=== PATIENT | female | born 2000 | race African-American/Black ===

== ENCOUNTER 2019-05-25 18:13 | Emergency (ER) | payer OTHER ==
[~2019-05-25] VITALS: Ht 167.6 cm; Wt 73.5 kg
[2019-05-25 19:25] LABS: ABSOLUTE NEUTROPHILS 1.9 thou/uL (1.4-8.2); BASOPHILS 0.7 % (0.0-2.0); EOSINOPHILS 1.7 % (0.0-3.0); HEMATOCRIT 41.9 % (37.0-47.0); LYMPHOCYTES 38.2 % (24.0-44.0); MCHC 33.4 g/dL (28.0-37.0); MONOCYTES 10.2 % (1.0-8.0); PLATELET COUNT 211 thou/uL (150-400); POLYS 49.2 % (36.0-66.0); RBC 4.36 mil/uL (4.20-5.00); RDW 12.5 % (10.5-14.5)
[2019-05-25 19:35] LABS: CALCIUM 9.3 mg/dL (8.5-10.1); CREATININE 0.9 mg/dL (0.6-1.0); POTASSIUM 3.3 mmol/L (3.5-5.1)
[2019-05-25 19:41] LABS: ALBUMIN 3.8 g/dL (3.4-5.0); TOTAL BILIRUBIN 0.5 mg/dL (<0.1-1.0); TOTAL PROTEIN 7.1 g/dL (6.4-8.2)
[2019-05-25 20:34] LABS: URINE BILIRUBIN NEGATIVE (Negative); URINE BLOOD 2+ (Negative); URINE CLARITY CLEAR; URINE COLOR YELLOW; URINE GLUCOSE-RANDOM* NEGATIVE (Negative); URINE KETONES NEGATIVE (Negative); URINE NITRITE-REFLEX NEGATIVE (Negative); URINE PROTEIN (DIPSTICK) 1+ (Negative); URINE UROBILINOGEN 0.2 E.U./dl (0.2-1.0)
[2019-05-25 20:35] LABS: URINE LEUKOCYTES-REFLEX 1+ (Negative)
[2019-05-25 20:41] LABS: SQUAMOUS >10 Many /LPF (0-3)
[2019-05-25 20:43] LABS: CASTS None Seen /LPF (None Seen); CRYSTALS None Seen /LPF (None Seen); URINE WBC-REFLEX 6-15 Few /HPF (0-5)
[2019-05-25 20:44] LABS: BACTERIA-REFLEX 1-9 Few /HPF (None Seen)
[2019-05-25] MEDS ORDERED: CEFUROXIME250 MG PO (20:49)
[2019-05-25] MEDS ORDERED: ZOFRAN ODT4 MG PO (20:49)
[2019-05-25 21:05] VITALS: BP 159/85
== END 2019-05-25 21:05 | disposition home or self-care (01) ==
LOC: ER 18:13
PROVIDERS: Emergency Medicine Emergency Medical Services
DX: S93.402A Sprain of unspecified ligament of left ankle, initial encounter (principal); N39.0 Urinary tract infection, site not specified; R11.2 Nausea with vomiting, unspecified; R10.13 Epigastric pain; X50.9XXA Other and unspecified overexertion or strenuous movements or postures, initial encounter; Y93.01 Activity, walking, marching and hiking; Y92.89 Other specified places as the place of occurrence of the external cause; Y99.8 Other external cause status